=== PATIENT | male | born 1995 | race Caucasian/White ===

== ENCOUNTER 2017-06-05 15:02 | Emergency (ER) | payer OTHER ==
[~2017-06-05 15:02] MED LIST: ENOX80DI8 SQ; RIVA15TA PO; RIVA20TA PO; WARF5TAB23 PO
--- NOTE | 2017-06-05 15:23 | ER Report ---
History and Physical Time Seen By MD: 15:23 Hx. of Stated Complaint: POSSIBLE BLOOD CLOT IN RIGHT LEG HPI/ROS CHIEF COMPLAINT: Swelling to right lower extremity HISTORY OF PRESENT ILLNESS: 21-year-old male patient presents to emergency room with complaint of swelling to his right lower extremity. Patient states this been going on for the past few days. Patient states he is having some discomfort with this. He states is very similar to a year ago when he was diagnosed with a DVT in the right leg. He states pains are similar. He states that he did have an ultrasound done initially which was negative and then had a repeat ultrasound done a week later which showed a significant blood clotting. He states he was transferred to [facility] that time. He states that he wanted to be more proactive this time. Patient denies any trauma to the leg, denies any type of injury. He states he has not done any significant traveling, stating that he has driven to [place] and back a couple of times last week. REVIEW OF SYSTEMS: Respiratory: No cough, no dyspnea. Cardiovascular: No chest pain, no palpitations. Gastrointestinal: No vomiting, no abdominal pain. Musculoskeletal: No back pain. Allergies: Coded Allergies: No Known Drug Allergies (Unverified , 06/05/17) Home Meds Discontinued Scripts Warfarin Sodium (WARFARIN SODIUM) 5 Mg Tablet, 5 MG PO QDAY for 30 Days, #30 TAB 3 Refills Prov:SANTIAGO RAMON PHARMD 11/20/16 Past Medical/Surgical History Patient has a past medical history of DVTs. Patient denies any pertinent surgical history. Reviewed Nurses Notes: Yes Smoking Status: Never Smoker Hx Substance Use Disorder: No Constitutional Vital Sign - Last 24 Hours 06/05/17 06/05/17 06/05/17 06/05/17 15:11 15:11 15:32 16:02 Temp 97.9 Pulse 96 86 90 Resp 12 B/P (MAP) 153/94 (113) 153/94 Pulse Ox 94 93 94 O2 Delivery Room Air 06/05/17 06/05/17 06/05/17 06/05/17 16:32 16:51 17:00 17:02 Pulse 80 B/P (MAP) 137/95 (109) 134/93 (107) Pulse Ox 97 100 Physical Exam General Appearance: The patient is alert, has no immediate need for airway protection and no current signs of toxicity. Respiratory: Chest is non tender, lungs are clear to auscultation. Cardiac: regular rate and rhythm Gastrointestinal: Abdomen is soft and non tender, no masses, bowel sounds normal. Musculoskeletal: Neck: Neck is supple and non tender. Extremities have full range of motion and are non tender. He does have some swelling to the right lower extremity, it is nonpitting. Pulses are equal. Skin: No rashes or lesions. DIFFERENTIAL DIAGNOSIS: After history and physical exam differential diagnosis was considered for DVT, muscle strain, contusion. Medical Decision Making Data Points Result Diagram: 06/05/17 1517 06/05/17 1517 Laboratory Hematology Test 06/05/17 15:17 Red Blood Count 5.62 M/uL (4.00-5.60) Mean Corpuscular Volume 90.7 fL (80.0-96.0) Mean Corpuscular Hemoglobin 31.8 pg (26.0-33.0) Mean Corpuscular Hemoglobin Concent 35.0 g/dL (32.0-36.0) Red Cell Distribution Width 13.5 % (11.5-14.5) Mean Platelet Volume 9.5 fL (7.2-11.1) Neutrophils (%) (Auto) 67.1 % (39.4-72.5) Lymphocytes (%) (Auto) 24.0 % (17.6-49.6) Monocytes (%) (Auto) 5.4 % (4.1-12.4) Eosinophils (%) (Auto) 3.0 % (0.4-6.7) Basophils (%) (Auto) 0.5 % (0.3-1.4) Nucleated RBC Relative Count (auto) 0.1 /100WBC Neutrophils # (Auto) 4.2 K/uL (2.0-7.4) Lymphocytes # (Auto) 1.5 K/uL (1.3-3.6) Monocytes # (Auto) 0.3 K/uL (0.3-1.0) Eosinophils # (Auto) 0.2 K/uL (0.0-0.5) Basophils # (Auto) 0.0 K/uL (0.0-0.1) Nucleated RBC Absolute Count (auto) 0.01 K/uL Sodium Level 139 mmol/L (137-145) Potassium Level 3.7 mmol/L (3.5-5.0) Chloride Level 103 mmol/L (98-107) Carbon Dioxide Level 23 mmol/L (22-30) Blood Urea Nitrogen 13 mg/dl (9-21) Creatinine 0.90 mg/dl (0.66-1.25) Glomerular Filtration Rate Calc > 60.0 Random Glucose 114 mg/dl (75-110) Calcium Level 9.1 mg/dl (8.4-10.2) Total Bilirubin 1.0 mg/dl (0.2-1.3) Aspartate Amino Transf (AST/SGOT) 34 U/L (0-35) Alanine Aminotransferase (ALT/SGPT) 67 U/L (0-56) Alkaline Phosphatase 72 U/L (0-126) Total Protein 7.8 gm/dl (6.3-8.2) Albumin 4.4 g/dl (3.5-5.0) Chemistry Test 06/05/17 15:17 White Blood Count 6.2 k/uL (4.5-11.0) Red Blood Count 5.62 M/uL (4.00-5.60) Hemoglobin 17.8 g/dL (14.0-18.0) Hematocrit 50.9 % (42.0-52.0) Mean Corpuscular Volume 90.7 fL (80.0-96.0) Mean Corpuscular Hemoglobin 31.8 pg (26.0-33.0) Mean Corpuscular Hemoglobin Concent 35.0 g/dL (32.0-36.0) Red Cell Distribution Width 13.5 % (11.5-14.5) Platelet Count 157 K/uL (150-450) Mean Platelet Volume 9.5 fL (7.2-11.1) Neutrophils (%) (Auto) 67.1 % (39.4-72.5) Lymphocytes (%) (Auto) 24.0 % (17.6-49.6) Monocytes (%) (Auto) 5.4 % (4.1-12.4) Eosinophils (%) (Auto) 3.0 % (0.4-6.7) Basophils (%) (Auto) 0.5 % (0.3-1.4) Nucleated RBC Relative Count (auto) 0.1 /100WBC Neutrophils # (Auto) 4.2 K/uL (2.0-7.4) Lymphocytes # (Auto) 1.5 K/uL (1.3-3.6) Monocytes # (Auto) 0.3 K/uL (0.3-1.0) Eosinophils # (Auto) 0.2 K/uL (0.0-0.5) Basophils # (Auto) 0.0 K/uL (0.0-0.1) Nucleated RBC Absolute Count (auto) 0.01 K/uL Glomerular Filtration Rate Calc > 60.0 Calcium Level 9.1 mg/dl (8.4-10.2) Total Bilirubin 1.0 mg/dl (0.2-1.3) Aspartate Amino Transf (AST/SGOT) 34 U/L (0-35) Alanine Aminotransferase (ALT/SGPT) 67 U/L (0-56) Alkaline Phosphatase 72 U/L (0-126) Total Protein 7.8 gm/dl (6.3-8.2) Albumin 4.4 g/dl (3.5-5.0) EKG/Imaging Imaging EXAMINATION: Right Lower Extremity Venous Ultrasound HISTORY: Leg pain. History of DVT. TECHNIQUE: Ultrasound evaluation of the right lower extremity veins was performed with color and spectral Doppler and compression views. COMPARISON: 06/28/2016. FINDINGS: The right common femoral, femoral, proximal deep femoral, popliteal, and segmentally visualized deep calf veins are patent and compressible, without evidence of intraluminal thrombus. The visualized upper greater saphenous vein is patent. IMPRESSION: Normal exam. No evidence of DVT in the right leg. Prior extensive right leg DVT has resolved, without ultrasound evidence of persistent or recurrent DVT in the right leg. Report Dictated By: Amilcar Castillo MD at 06/05/2017 4:50 PM Report E-Signed By: Amilcar Castillo MD at 06/05/2017 4:54 PM ED Course/Re-evaluation ED Course Patient was admitted to an exam room, history and physical were obtained. Differential diagnoses were considered. On examination patient had some tenderness to the right lower leg, and did appear to be slightly swollen. A CBC , CMP were done. The results were unremarkable. A ultrasound of the right lower extremity was done which was negative for DVTs. I discussed the findings with patient. I did express my concern that the patient is having very similar symptoms to what he had a year ago, he had a negative ultrasound at that time and then a week later had extensive clotting in the leg. As a result of that I do want him to follow-up and get repeat imaging done soon. He does have an appointment for Saturday to see Dr. Mejía at the [facility]. I do have concerns about waiting that long. I discussed with him that I will contact the clinic tomorrow and see if we can make an appointment for him to follow-up on Saturday. He verbalized agreement with that. Patient also has instructions to return to the emergency room if condition worsens. That includes worsening pain or worsening swelling. At that time a repeat ultrasound will be done. It is my concern right now that we went ahead and treated him with a blood thinner that the risk of harm would out some way the benefit. Patient verbalized understanding and agreement with plan. 06/06/2017 7:25:08 pm plan was made for tomorrow at 1:15. Throughout the day I have attempted to contact the patient multiple times. Is unable to get a hold of the patient. Due to the timing we are not able to verify, is my hope this time that they will contact him through the [facility]. I will discuss this with them tomorrow morning after they open. Decision to Disposition Date: Jun 05, 2017 Decision to Disposition Time: 16:58 Depart Departure Latest Vital Signs Vital Signs Date Time Temp Pulse Resp B/P (MAP) Pulse Ox O2 Delivery O2 Flow Rate FiO2 06/05/17 17:02 80 100 06/05/17 17:00 134/93 (107) 06/05/17 15:11 97.9 12 Room Air Impression: Primary Impression: Swelling of right lower extremity Condition: Improved Disposition: HOME OR SELF-CARE New Scripts No Active Prescriptions or Reported Meds Patient Instructions: Leg Edema (ED) Additional Instructions: The Ultrasound was negative. Due to that, I would like you to have a repeat Ultrasound, that should be ordered by your primary care provider. Take it easy this weekend, no strenuous activity. Get plenty of rest. Return to the ER if swelling worsens, pain worsens or you are having shortness of breath or chest pain. DEVANTE NICOLE Jun 05, 2017 15:23
[2017-06-05 15:47] LABS: PLATELET COUNT, AUTOMATED 157 K/uL (150-450)
--- NOTE | 2017-06-05 16:58 | RADIOLOGY IMAGING REPORT ---
[facility]AC[facility] PATIENT NAME: Nelida Zamora : 1995 MR: [id number] V: [id number] EXAM DATE: ORDERING PHYSICIAN: DEVANTE NICOLE [place]CHNOLOG[place] [facility] [place] Zam[place] : 1995 Visit/Account:[id number] Date of Sevice: 06/05/2017 EXAMINATION: Right Lower Extremity Venous Ultrasound HISTORY: Leg pain. History of DVT. TECHNIQUE: Ultrasound evaluation of the right lower extremity veins was performed with color and spe ctral Doppler and compression views. COMPARISON: 06/28/2016. FINDINGS: The right common femoral, femoral, proximal deep femoral, popliteal, and segmentally visualized deep calf veins are patent and compressible, without evidence of intraluminal thrombus. The visualized up per greater saphenous vein is patent. IMPRESSION: Normal exam. No evidence of DVT in the right leg. Prior extensive right leg DVT has resolved, withou t ultrasound evidence of persistent or recurrent DVT in the right leg. Report Dictated By: Amilcar Castillo MD at 06/05/2017 4:50 PM Report E-Signed By: Amilcar Castillo MD at 06/05/2017 4:54 PM WSN:[id number]
[2017-06-05 17:00] VITALS: BP 134/93
== END 2017-06-05 17:08 | disposition home or self-care (01) ==
LOC: ER 15:20
DX: M79.89 Other specified soft tissue disorders (principal)
CPT/HCPCS: 82040; 82247; 82310; 82374; 82435; 82565; 82947; 84075; 84132; 84155; 84295; 84450; 84460; 84520; 85025; 99284

== ENCOUNTER → 2017-06-07 | Outpatient (CLI) | payer OTHER ==
--- NOTE | 2017-06-07 17:41 | RADIOLOGY IMAGING REPORT ---
FACILITY: [facility] PATIENT NAME: Nelida Zamora : 1995 MR: [id number] V: [id number] EXAM DATE: ORDERING PHYSICIAN: DENISE CHIRINOS TECHNOLOGIST: Location: [facility] Patient: Nelida Zamora : 1995 Visit/Account:[id number] Date of Sevice: 06/07/2017 VENOUS DOPP LOW RIGHT EXTREMITY History: Family history of factor V deficiency EXAMINATION: Unilateral lower extremity deep vein duplex Doppler ultrasound COMPARISON STUDIES: 06/05/2017 FINDINGS: Grayscale compression, duplex and color Doppler interrogation of the lower extremity deep veins from common femoral vein to proximal calf was performed. The greater saphenous vein in the ipsilateral pro ximal thigh was evaluated using similar technique. Right lower extremity: Common femoral vein negative Femoral vein negative Deep femoral vein - negative Popliteal vein negative Visualized deep calf veins negative Greater saphenous vein in the proximal thigh negative Popliteal fossa: negative IMPRESSION: No evidence of deep vein thrombosis in the right lower extremity Report Dictated By: Hammad Mendoza MD at 06/07/2017 5:35 PM Report E-Signed By: Hammad Mendoza MD at 06/07/2017 5:37 PM WSN:[id number]
== END ==
LOC: US 14:54
PROVIDERS: ATTEND Nurse Practitioner Family
DX: M79.661 Pain in right lower leg (principal); Z86.718 Personal history of other venous thrombosis and embolism; R60.9 Edema, unspecified; Z84.89 Family history of other specified conditions